=== PATIENT | female | born 1950 | race Caucasian/White ===

== ENCOUNTER 2016-11-08 13:49 | Emergency (ER) | payer OTHER ==
[2016-11-08 14:03] VITALS: TEMP 98.7; BMI 30.5
--- NOTE | 2016-11-08 14:27 | PDOC ---
History of Present Illness - General Chief Complaint: Chest Pain Stated Complaint: LEFT ARM AND CHEST PAIN Time Seen by Provider: 11/08/16 14:24 History Source: Patient Exam Limitations: No Limitations - History of Present Illness Initial Comments: 11/08/16 14:26 CHIEF COMPLAINT: Chest pain HISTORY OF PRESENT ILLNESS: This is a 66 year old male with a history of atrial fibrillation on Coumadin and HTN who presents ambulatory to the ED complaining of chest pain and left arm pain. The pain began while walking two days ago and was initially intermittent, but now is constant and present at rest. She denies any associated shortness of breath, nausea, dizziness, or any other symptoms. Vital signs on arrival are unremarkable. REVIEW OF SYSTEMS: GENERAL/CONSTITUTIONAL: No fever or chills. No weakness. No weight change. HEAD, EYES, EARS, NOSE AND THROAT: No change in vision. No ear pain or discharge. No sore throat. CARDIOVASCULAR: See HPI. RESPIRATORY: No cough, wheezing, or shortness of breath. GASTROINTESTINAL: No nausea, vomiting, diarrhea or constipation. GENITOURINARY: No dysuria, frequency, or change in urination. MUSCULOSKELETAL: No joint or muscle swelling or pain. No neck or back pain. SKIN: No rash or easy bruising. NEUROLOGIC: No headache, vertigo, loss of consciousness, or loss of sensation. PSYCHIATRIC: No depression or anxiety. ENDOCRINE: No increased thirst. No abnormal weight change. HEMATOLOGIC/LYMPHATIC: No anemia, easy bleeding, or history of blood clots. ALLERGIC/IMMUNOLOGIC: No hives or skin allergy. No latex allergy. PHYSICAL EXAM: GENERAL: The patient is awake, alert, and fully oriented, in no acute distress. ENT: Pupils equal, round and reactive to light, extraocular movements intact, sclera anicteric, conjunctiva clear. Neck supple. LUNGS: Clear to auscultation bilaterally. Normal excursion. No respiratory distress or use of accessory muscles. CV: RRR, S1/S2, no MRG. Cap refill < 2 sec. ABDOMEN: Soft, non-distended, non-tender. EXTREMITIES: Normal range of motion, no edema. NEUROLOGICAL: Normal speech, normal gait. CN II-XII grossly intact. PSYCH: Normal mood, normal affect. SKIN: Warm, dry, normal turgor, no rashes or lesions noted. Past History - Past Medical History Allergies/Adverse Reactions: Allergies Allergy/AdvReac Type Severity Reaction Status Date / Time No Known Allergies Allergy Verified 11/08/16 14:03 Home Medications: Ambulatory Orders Lisinopril [Prinivil] 10 mg PO DAILY 11/08/16 Warfarin Na [Coumadin] 16 mg PO DAILY 11/08/16 Cardiac Disorders: Yes (AFIB) HTN: Yes - Psycho/Social/Smoking Cessation Hx Suicidal Ideation: No Smoking History: Never smoked Information on smoking cessation initiated: No Hx Alcohol Use: No Drug/Substance Use Hx: No Substance Use Type: None *Physical Exam - Vital Signs Last Vital Signs Temp Pulse Resp BP Pulse Ox 98.7 F 88 18 141/82 97 11/08/16 14:01 11/08/16 14:01 11/08/16 14:01 11/08/16 14:01 11/08/16 14:01 ED Treatment Course - LABORATORY CBC & Chemistry Diagram: 11/08/16 14:34 11/08/16 14:34 - RADIOLOGY Radiology Studies Ordered: Category Date Time Status CHEST X-RAY PORTABLE* [RAD] Stat Radiology 11/08/16 14:26 Ordered Medical Decision Making - Medical Decision Making 11/08/16 15:28 A/P: 66 year old female with chest pain/left arm pain at rest. 1. EKG 2. CXR 3. Cardiac labs 4. ASA 162mg 5. SL ntg 0.4mg 6. Re-assess 11/08/16 16:06 INR sub-therapeutic at 1.5. 11/08/16 16:07 CXR: Cardiomegaly; no acute process. 11/08/16 16:50 First troponin <0.02. Explained to patient and son at bedside that serial troponins are necessary to rule out IN and recommended observation. They decline. offered ED stay for second troponin and they decline this also. Explained risk of adverse outcomes including and they agree. *DC/Admit/Observation/Transfer Diagnosis at time of Disposition: Subtherapeutic anticoagulation Chest pain Qualifiers: Chest pain type: other chest pain Qualified Code(s): R07.89 - Other chest pain - Discharge Dispostion Disposition: AGAINST MEDICAL ADVICE Condition at time of disposition: Guarded - Referrals Referrals: Bhavya Rowley MD [Primary Care Provider] - - Patient Instructions Printed Discharge Instructions: DI for Chest Pain Additional Instructions: -You are being discharged AGAINST MEDICAL ADVICE -Please follow up with Dr. Rowley as soon as possible for further evaluation and testing -Return here if you wish to complete your evaluation, or for any new or concerning symptoms
[2016-11-08] MEDS ORDERED: NITROGLYCERIN SUBLINGUAL 1/150 0.4 MG TAB SL ONE (14:46)
[2016-11-08] MEDS ORDERED: ASPIRIN 81 MG CHEWABLE TABLETS PO ONE (14:46)
[2016-11-08 15:19] LABS: BASOPHIL 0.5 % (0-2.0); EOSINOPHIL 1.6 % (0-4.5); MCH 27.9 pg (25.7-33.7); MCHC 32.4 g/dl (32.0-36.0); MEAN CELL VOLUME 86.3 fl (80-96); MEAN PLT VOLUME 9.3 fl (7.5-11.1); NEUTROPHILS 66.4 % (42.8-82.8); PLATELET COUNT 132 K/MM3 (134-434); RDW 13.8 % (11.6-15.6); WHITE BLOOD COUNT 6.7 K/mm3 (4.0-10.0)
[2016-11-08] MEDS ORDERED: ASPIRIN 81 MG CHEWABLE TABLETS ONE (15:19)
[2016-11-08 15:59] LABS: ALBUMIN 3.6 g/dl (3.4-5.0); ANION GAP 6 (8-16); BILIRUBIN,TOTAL 0.5 mg/dL (0.2-1.0); CALCIUM 8.7 mg/dL (8.5-10.1); CO2 27 mmol/L (21-32); CREATININE 0.4 mg/dL (0.55-1.02); GLUCOSE,RANDOM 100 mg/dL (74-106); SGPT/ALT 24 U/L (12-78); TOT PROT 7.7 g/dl (6.4-8.2)
[2016-11-08 16:01] LABS: INR 1.5 (0.82-1.09); PROTHROMBIN TIME (PATIENT) 16.6 SEC (9.98-11.88)
[2016-11-08 16:02] LABS: ALK PHOS 43 U/L (45-117); TROPONIN I < 0.02 ng/ml (0.00-0.05)
[2016-11-08] MEDS ORDERED: ENOXAPARIN NA (PORCINE) 80 MG/0.8 ML DISP.SYRIN SQ SCH ×2 (16:15→16:31)
[2016-11-08 16:22] LABS: URINE APPEARANCE CLEAR; URINE BILIRUBIN NEGATIVE (NEGATIVE); URINE BLOOD NEGATIVE (NEGATIVE); URINE COLOR LTYELLOW; URINE GLUCOSE (UA) NEGATIVE (NEGATIVE); URINE KETONE NEGATIVE (NEGATIVE); URINE LEUK ESTERASE NEGATIVE (NEGATIVE); URINE NITRITE NEGATIVE (NEGATIVE); URINE PROTEIN NEGATIVE (NEGATIVE); URINE UROBILINOGEN NEGATIVE mg/dL (0.2-1.0)
[2016-11-08] MEDS ORDERED: ENOXAPARIN NA (PORCINE) 80 MG/0.8 ML DISP.SYRIN SQ ONE (16:32)
[2016-11-08 16:37] LABS: CPK 107 IU/L (26-192); SGOT/AST 29 U/L (15-37)
[2016-11-08 16:59] VITALS: BP 130/70; PULSE 80
--- NOTE | 2016-11-09 10:27 | EKG ---
Test Reason : Blood Pressure : / mmHG Vent. Rate : 087 BPM Atrial Rate : 083 BPM P-R Int : 000 ms QRS Dur : 090 ms QT Int : 372 ms P-R-T Axes : 000 -13 -06 degrees QTc Int : 447 ms ATRIAL FIBRILLATION POSSIBLE ANTERIOR INFARCT (CITED ON OR BEFORE 11-APR-2010) CANNOT RULE OUT INFERIOR INFARCT , AGE UNDETERMINED ABNORMAL ECG Confirmed by ALEX BILLINGSLEY MD ([id number]) on 11/09/2016 10:27:41 AM Referred By: Confirmed By:ALEX BILLINGSLEY MD
== END 2016-11-08 17:12 | disposition left against medical advice (07) ==
LOC: JER 13:49
PROC: 3E013GC Introduction of Other Therapeutic Substance into Subcutaneous Tissue, Percutaneous Approach (ICD-10-PCS; principal; 2016-11-08)
DX: R07.89 Other chest pain (principal); R79.1 Abnormal coagulation profile; I48.91 Unspecified atrial fibrillation; I10 Essential (primary) hypertension; Z79.01 Long term (current) use of anticoagulants
CPT/HCPCS: 36415; 71010-TC; 80053; 81003; 84484; 85025; 85610; 93005; 93010; 99285-25

== ENCOUNTER 2016-11-11 23:01 | Emergency (ER) | payer OTHER ==
--- NOTE | 2016-11-11 23:09 | PDOC ---
Attending Attestation - Resident Resident Name: Jose Antonio Weaver - ED Attending Attestation I have performed the following: I have examined & evaluated the patient, The case was reviewed & discussed with the resident, I agree w/resident's findings & plan, Exceptions are as noted - HPI HPI: 11/12/16 01:14 66 yo female on coumadin has c/o slow bleeding from her rt lower molar for 3 days - Physicial Exam PE: 11/12/16 01:15 bleeding from embrasure space on mesial surface of her rt mandibular molar, the tooth has no opposing tooth above it and is extruding from the socket site. The tooth is slightly mobile -there is no evidence of any dental trauma - Medical Decision Making 11/12/16 01:18 the oral bleeding stopped and pt discharge to see her dentist Procedure Note Procedure: there was an area of bleeding on the mesial surface of tooth number 31. Surigiell(ETHICON) was placed in the embrsure space and the bleeding stopped
--- NOTE | 2016-11-11 23:21 | PDOC ---
History of Present Illness - History of Present Illness Initial Comments: 11/11/16 23:08 Ms. Barrera is a 66 year old female with a significant past medical history of HTN and afib who presents to the emergency department with a 2 day history of bleeding from her mouth she thinks is coming from her back right tooth. She had previously been seen on for arm pain and had been given a "shot in the stomach" when her INR was found to be too low. The patient denies chest pain, shortness of breath, headache and dizziness. Denies fever, chills, nausea, vomit, diarrhea and constipation. Denies dysuria, frequency, urgency and hematuria. Allergies: NKDA Past surgical history: Denies Social history: None PMD - Bhavya Din <Jose Antonio Weaver - Last Filed: 11/12/16 00:01> <Isela Chavez - Last Filed: 11/12/16 01:22> - General Stated Complaint: BLEEDING FROM MOUTH Time Seen by Provider: 11/11/16 23:06 Past History - Past Medical History Cardiac Disorders: Yes (AFIB) HTN: Yes - Psycho/Social/Smoking Cessation Hx Suicidal Ideation: No Smoking History: Never smoked Hx Alcohol Use: No Drug/Substance Use Hx: No Substance Use Type: None <Jose Antonio Weaver - Last Filed: 11/12/16 00:01> <Isela Chavez - Last Filed: 11/12/16 01:22> - Past Medical History Allergies/Adverse Reactions: Allergies Allergy/AdvReac Type Severity Reaction Status Date / Time No Known Allergies Allergy Verified 11/08/16 14:03 Home Medications: Ambulatory Orders Lisinopril [Prinivil] 10 mg PO DAILY 11/08/16 Warfarin Na [Coumadin] 16 mg PO DAILY 11/08/16 Review of Systems - Review of Systems Comments:: 11/11/16 23:08 GENERAL/CONSTITUTIONAL: No fever or chills. No weakness. HEAD, EYES, EARS, NOSE AND THROAT: +2 day history of bleeding from the mouth. No change in vision. No ear pain or discharge. No sore throat. CARDIOVASCULAR: No chest pain or shortness of breath RESPIRATORY: No cough, wheezing, or hemoptysis. GASTROINTESTINAL: No nausea, vomiting, diarrhea or constipation. GENITOURINARY: No dysuria, frequency, or change in urination. MUSCULOSKELETAL: No joint or muscle swelling or pain. No neck or back pain. SKIN: No rash NEUROLOGIC: No headache, vertigo, loss of consciousness, or change in strength/ sensation. ENDOCRINE: No increased thirst. No abnormal weight change HEMATOLOGIC/LYMPHATIC: No anemia or history of blood clots. ALLERGIC/IMMUNOLOGIC: No hives or skin allergy. <Jose Antonio Weaver - Last Filed: 11/12/16 00:01> *Physical Exam - Physical Exam Comments: 11/11/16 23:08 GENERAL: Awake, alert, and fully oriented, in no acute distress HEAD: No signs of trauma, normocephalic, atraumatic EYES: PERRLA, EOMI, sclera anicteric, conjunctiva clear ENT: +Patient bleeding from back R lower molar. Tooth is raised and loose but non-tender. NECK: Normal ROM, supple, no lymphadenopathy, JVD, or masses LUNGS: No distress, speaks full sentences, clear to auscultation bilaterally HEART: Regular rate and rhythm, normal S1 and S2, no murmurs, rubs or gallops, peripheral pulses normal and equal bilaterally. ABDOMEN: Soft, nontender, normoactive bowel sounds. No guarding, no rebound. No masses EXTREMITIES: Normal inspection, Normal range of motion, no edema. No clubbing or cyanosis. NEUROLOGICAL: Cranial nerves II through XII grossly intact. Normal speech, normal gait, no focal sensorimotor deficits SKIN: Warm, Dry, normal turgor, no rashes or lesions noted. 11/11/16 23:37 <Jose Antonio Weaver - Last Filed: 11/12/16 00:01> - Vital Signs Last Vital Signs Temp Pulse Resp BP Pulse Ox 99.0 F 75 16 152/88 99 11/11/16 23:15 11/11/16 23:15 11/11/16 23:15 11/11/16 23:15 11/12/16 00:04 <Isela Chavez - Last Filed: 11/12/16 01:22> ED Treatment Course - LABORATORY CBC & Chemistry Diagram: 11/11/16 23:40 11/11/16 23:40 - ADDITIONAL ORDERS Additional order review: Laboratory Results 11/11/16 11/11/16 23:40 23:40 INR 1.42 H PTT (Actin FS) 33.6 Sodium 140 Potassium 4.1 Chloride 103 Carbon Dioxide 28 Anion Gap 9 BUN 22 H D Creatinine 0.5 L D Creat Clearance w eGFR > 60 Random Glucose 110 H Calcium 8.9 Total Bilirubin 0.3 D AST 14 L D ALT 21 Alkaline Phosphatase 46 Total Protein 7.5 Albumin 3.8 11/11/16 23:40 RBC 4.04 MCV 85.8 MCHC 32.9 RDW 13.4 MPV 8.5 Neutrophils % 56.0 Lymphocytes % 31.0 D Monocytes % 9.4 Eosinophils % 2.7 Basophils % 0.9 - Medications Given in the ED: ED Medications Discontinued Medications Generic Name Dose Route Start Last Admin Trade Name Freq PRN Reason Stop Dose Admin Amlodipine Besylate 5 mg 11/11/16 23:32 11/11/16 23:38 Norvasc - PO 11/11/16 23:33 5 mg ONCE ONE Administration <Isela Chavez - Last Filed: 11/12/16 01:22> Medical Decision Making - Medical Decision Making 11/11/16 23:45 Ms. Barrera presents with 2 days of bleeding from her R lower molar. Concern that INR not sufficiently corrected at last visit (). PT/INR drawn to evaluate. BP elevated to 152/88. Norvasc given for BP control. 11/12/16 00:00 Patient signed out to Dr. Chavez for continued care. <Jose Antonio Weaver - Last Filed: 11/12/16 00:01> *DC/Admit/Observation/Transfer <Jose Antonio Weaver - Last Filed: 11/12/16 00:01> <Isela Chavez - Last Filed: 11/12/16 01:22> Diagnosis at time of Disposition: Oral bleeding - Discharge Dispostion Disposition: HOME Condition at time of disposition: Stable - Patient Instructions Printed Discharge Instructions: DI for Dental Pain Additional Instructions: please follow up with your dentist
[2016-11-11] MEDS ORDERED: amLODIPine BESYLATE 5 MG TABLET (FP) PO ONE (23:32)
[2016-11-11] MEDS ORDERED: amLODIPine BESYLATE 5 MG TABLET (FP) ONE (23:41)
[2016-11-11 23:47] LABS: BASOPHIL 0.9 % (0-2.0); EOSINOPHIL 2.7 % (0-4.5); MCH 28.3 pg (25.7-33.7); MCHC 32.9 g/dl (32.0-36.0); MEAN CELL VOLUME 85.8 fl (80-96); MEAN PLT VOLUME 8.5 fl (7.5-11.1); PLATELET COUNT 139 K/MM3 (134-434); RDW 13.4 % (11.6-15.6)
[2016-11-12 00:01] LABS: INR 1.42 (0.82-1.09); PROTHROMBIN TIME (PATIENT) 15.7 SEC (9.98-11.88)
[2016-11-12 00:04] LABS: ACTIVATED PTT 33.6 SECONDS (26.9-34.4)
[2016-11-12 00:10] LABS: ALBUMIN 3.8 g/dl (3.4-5.0); ALK PHOS 46 U/L (45-117); ANION GAP 9 (8-16); BILIRUBIN,TOTAL 0.3 mg/dL (0.2-1.0); CALCIUM 8.9 mg/dL (8.5-10.1); CO2 28 mmol/L (21-32); CREATININE 0.5 mg/dL (0.55-1.02); GLUCOSE,RANDOM 110 mg/dL (74-106); SGOT/AST 14 U/L (15-37); SGPT/ALT 21 U/L (12-78); TOT PROT 7.5 g/dl (6.4-8.2)
[2016-11-12 00:12] VITALS: PULSE 75; TEMP 99; BMI 28.6
[2016-11-12] MEDS ORDERED: LISINOPRIL 10 MG TABLET (FP) PO ONE (01:29)
[2016-11-12] MEDS ORDERED: LISINOPRIL 5 MG TABLET (FP) ONE (01:32)
[2016-11-12 01:35] VITALS: BP 176/81
== END 2016-11-12 01:41 | disposition home or self-care (01) ==
LOC: JER 23:01
DX: K08.89 Other specified disorders of teeth and supporting structures (principal); I48.91 Unspecified atrial fibrillation; Z79.01 Long term (current) use of anticoagulants; I10 Essential (primary) hypertension
CPT/HCPCS: 36415; 80053; 85025; 85610; 85730; 99283-25

== ENCOUNTER → 2018-03-17 | Day surgery (SDC) | payer OTHER ==
--- NOTE | 2018-03-25 17:48 | PATH ---
Surgical Pathology Report Patient Name: CARLOS MCCLURE [facility]. Rec. #: [id number] /Age/Gender: 1950 (Age: 68) / F Account: [id number] Location: RADIOLOGY RUST Taken: 03/17/2018 Received: 03/17/2018 Reported: 03/25/2018 Physicians: Otto Wilkes M.D. Specimen(s) Received LEFT BREAST 11:00 1.68CM Clinical History 1.7 cm left infraclavicular palpable mass (chest wall) Final Diagnosis CHEST/BREAST, LEFT, 11:00, ULTRASOUND GUIDED CORE BIOPSY: SCANT LYMPHOID TISSUE CONSISTENT WITH FOLLICULAR LYMPHOMA SEE COMMENT. Comment: Histologic sections show small fragments of skin, skeletal muscle, adipose tissue, and scant lymphoid tissue. The lymphoid tissue has a vaguely nodular architecture and is comprised predominantly of small lymphocytes. Occasional larger lymphoid cells are present. Immunohistochemical stains are reviewed. Stains for CD20 and CD3 show a mixed population with rare CD20+ nodules. The nodules are additionally positive for CD10, BCL-6, and BCL-2. Stains for CD21 and CD23 highlight follicular dendritic meshworks within the nodules. A stain for Ki-67 is variable, however, the nodules are too scant too provide a definitive percentage. The amount of lymphoid tissue is very scant and is too limited for grading. If clinically indicated, rebiopsy with fresh tissue submitted for flow cytometry may be helpful. This case was sent to Dr. Sandro Muller from [facility], [place], [place] ([id number]) the diagnosis above reflects his opinion. Dr. Feliz Mesa has seen this case in consultation and concurs with the diagnosis. See [facility] report ([id number]) for additional details. Electronically Signed Jonelle Brewer M.D. Gross Description Received in formalin labeled "left chest/breast 11:00," are 4 mantilla-yellow, cylindrical portions of fibroadipose tissue ranging from 0.3-1.1 cm in length and averaging 0.1 cm in diameter. The specimens are submitted in toto in one cassette. Time to formalin fixation: Less than one minute Total formalin fixation time: Approximately 6 hours. 03/17/201803/17/2018
== END | disposition home or self-care (01) ==
LOC: JRADUS-SUR 11:27
PROVIDERS: ATTEND Family Medicine
PROC: 0JB60ZX Excision of Chest Subcutaneous Tissue and Fascia, Open Approach, Diagnostic (ICD-10-PCS; principal; 2018-03-17)
DX: C82.82 Other types of follicular lymphoma, intrathoracic lymph nodes (principal)
CPT/HCPCS: 19083; 87899; 88305-TC; 88341-TC; 88342-TC

== ENCOUNTER 2018-10-21 06:23 | Day surgery (SDC) | payer OTHER ==
[2018-10-20 14:23] VITALS: BMI 29.5
[2018-10-21 17:00] VITALS: BP 143/66; PULSE 77; TEMP 98.6
--- NOTE | 2018-10-27 18:10 | PATH ---
Surgical Pathology Report Patient Name: CARLOS MCCLURE [facility]. Rec. #: [id number] /Age/Gender: 1950 (Age: 68) / F Account: [id number] Location: RADIOLOGY INTER Taken: 10/21/2018 Received: 10/21/2018 Reported: 10/27/2018 Physicians: Cassandra Gillespie M.D. Specimen(s) Received PARAAORTIC LYMPH NODE BIOPSY Clinical History Follicular lymphoma Final Diagnosis LYMPH NODE, PARAAORTIC, LEFT, CORE BIOPSY: FOLLICULAR LYMPHOMA, GRADE 1-2. SEE COMMENT. Comment: H&E stained core biopsy section shows a nodular lymphoid infiltrate. Majority of cells are small with irregular nuclear contours; <5 centroblasts are noted. Immunoperoxidase studies show CD20(+), PAX5(+) B-cell follicles in association with CD21(+), CD23(+) follicular dendritic meshworks. The B-cell follicles are CD10(+), BCL2(+), BCL6(+). Ki-67 immunostain shows a proliferation index of <5%. T-cells are morphologically unremarkable. Plasma cells are polytypic. CD30 immunostain highlights scattered activated lymphoid cells. Flow cytometry shows a monoclonal kappa, CD10 positive B-cell population ([id number]). Correlation with relevant clinical and laboratory findings is recommended. This case was sent to Dr. Briana Root from [facility], [place], [place] ([id number]) the diagnosis above reflects her opinion. See [facility] reports for additional details. Electronically Signed Jonelle Brewer M.D. Gross Description Received in formalin labeled "paraaortic biopsy," but indicated on the requisition to be a para-aortic lymph node, are 5 mantilla, cylindrical portions of soft tissue ranging from 1.1-1.8 cm in length and averaging 0.1 cm in diameter. The specimens are submitted in toto in one cassette. There is additional tissue received in RPMI solution which is sent for flow cytometry. /10/21/2018 saudi10/21/2018
== END 2018-10-21 16:30 | disposition home or self-care (01) ==
LOC: JRADIR 06:23
PROVIDERS: ATTEND Internal Medicine Hematology & Oncology
PROC: 07BD3ZX Excision of Aortic Lymphatic, Percutaneous Approach, Diagnostic (ICD-10-PCS; principal; 2018-10-21)
DX: C82.16 Follicular lymphoma grade II, intrapelvic lymph nodes (principal)
CPT/HCPCS: 49180; 76380-TC; 88307-TC

== ENCOUNTER 2021-01-18 04:52 | Day surgery (SDC) | payer MEDICARE, OTHER ==
[2021-01-17 17:24] VITALS: BMI 32.9
[2021-01-18] MEDS ORDERED: ACETAMINOPHEN 1000 MG/100 ML VIAL IVPB ONE (14:55)
[2021-01-18] MEDS ORDERED: ACETAMINOPHEN INJECTION 100 ML IVPB ONE (14:55)
[2021-01-18 16:51] VITALS: TEMP 97.7
[2021-01-18] MEDS ORDERED: LISINOPRIL 20 MG TABLET PO ONE ×2 (17:21→17:30)
[2021-01-18 18:08] VITALS: BP 156/69; PULSE 76
== END 2021-01-18 18:10 | disposition home or self-care (01) ==
LOC: JRADIR 04:52
PROVIDERS: ATTEND Internal Medicine Hematology & Oncology
PROC: 0BBL3ZX Excision of Left Lung, Percutaneous Approach, Diagnostic (ICD-10-PCS; principal; 2021-01-18)
DX: D14.32 Benign neoplasm of left bronchus and lung (principal); Z85.72 Personal history of non-Hodgkin lymphomas
CPT/HCPCS: 32408; 71046-TC-FY; 88305-TC; 88341-TC; 88342-TC; J0131

== ENCOUNTER → 2021-02-13 | Day surgery (SDC) | payer OTHER | END | disposition home or self-care (01) | LOC: JRADIR 09:45 | PROVIDERS: ATTEND Internal Medicine Hematology & Oncology | PROC: 0G9K3ZX Drainage of Thyroid Gland, Percutaneous Approach, Diagnostic (ICD-10-PCS; principal; 2021-02-13) | DX: E04.1 Nontoxic single thyroid nodule (principal) | CPT/HCPCS: 10005; 76942 ==

== ENCOUNTER → 2021-02-15 | Day surgery (SDC) | payer OTHER ==
[2021-02-15 11:05] LABS: BASO % 0.8 % (0-2.0); EOS % 2.2 % (0-4.5); HEMOGLOBIN 12.3 GM/dL (10.7-15.3); LYMPH % 26.4 % (8-40); MCH 28.6 pg (25.7-33.7); MCHC 33.3 g/dl (32.0-36.0); MEAN CELL VOLUME 85.7 fl (80-96); MEAN PLT VOLUME 7.6 fl (7.5-11.1); MONO % 9.2 % (3.8-10.2); NEUT % 61.4 % (42.8-82.8); PLATELET COUNT 133 10^3/uL (134-434); RBC 4.32 M/mm3 (3.60-5.2); RDW 14.3 % (11.6-15.6); WHITE BLOOD COUNT 4.6 K/mm3 (4.0-10.0)
[2021-02-15 11:12] LABS: INR 1.09 (0.83-1.09); PROTHROMBIN TIME (PATIENT) 12.2 SEC (9.7-13.0)
== END | disposition home or self-care (01) ==
LOC: JRADIR 10:16
PROVIDERS: ATTEND Internal Medicine Hematology & Oncology
PROC: 0W963ZX Drainage of Neck, Percutaneous Approach, Diagnostic (ICD-10-PCS; principal; 2021-02-15)
DX: R22.1 Localized swelling, mass and lump, neck (principal); Z85.72 Personal history of non-Hodgkin lymphomas
CPT/HCPCS: 10005; 36415; 76942-TC; 85025; 85610; 87899; 88173; 88305-TC

== ENCOUNTER → 2021-02-16 | Day surgery (SDC) | payer OTHER ==
[2021-02-16 10:34] LABS: INR 1.11 (0.83-1.09); PROTHROMBIN TIME (PATIENT) 12.4 SEC (9.7-13.0)
[2021-02-16 10:42] LABS: ALBUMIN 3.6 g/dl (3.4-5.0); BLOOD UREA NITROGEN 13.2 mg/dL (7-18); CALCIUM 8.9 mg/dL (8.5-10.1)
[2021-02-16 10:43] LABS: BASO % 2.2 % (0-2.0); EOS % 2.9 % (0-4.5); HEMATOCRIT 34.8 % (32.4-45.2); HEMOGLOBIN 11.7 GM/dL (10.7-15.3); LYMPH % 22.1 % (8-40); MCH 28.5 pg (25.7-33.7); MCHC 33.5 g/dl (32.0-36.0); MEAN CELL VOLUME 84.9 fl (80-96); MEAN PLT VOLUME 8.1 fl (7.5-11.1); MONO % 9.3 % (3.8-10.2); NEUT % 63.5 % (42.8-82.8); PLATELET COUNT 126 10^3/uL (134-434); WHITE BLOOD COUNT 3.8 K/mm3 (4.0-10.0)
[2021-02-16 10:44] LABS: URIC ACID 2.9 mg/dL (2.6-7.2)
[2021-02-16 10:46] LABS: CREATININE 0.5 mg/dL (0.55-1.3)
[2021-02-16 10:47] LABS: BILIRUBIN,TOTAL 0.4 mg/dL (0.2-1); TOT PROT 7.4 g/dl (6.4-8.2)
== END | disposition home or self-care (01) ==
LOC: JONCCHEMO 07:30
PROVIDERS: ATTEND Internal Medicine Hematology & Oncology
DX: Z53.8 Procedure and treatment not carried out for other reasons (principal)
CPT/HCPCS: 36415; 80053; 83615; 84550; 85025; 85610; 85730

== ENCOUNTER 2021-03-22 05:21 | Day surgery (SDC) | payer OTHER ==
[2021-03-20 16:15] VITALS: BMI 30.9
[2021-03-22 10:36] LABS: INR 1.22 (0.83-1.09); PROTHROMBIN TIME (PATIENT) 13.7 SEC (9.7-13.0)
[2021-03-22] MEDS ORDERED: ACETAMINOPHEN 325 MG TABLET (FP) ONE (14:02)
[2021-03-22] MEDS ORDERED: ACETAMINOPHEN 325 MG TABLET (FP) PO ONE (14:06)
[2021-03-22 14:22] VITALS: BP 177/90; PULSE 79; TEMP 97.6
== END 2021-03-22 14:51 | disposition home or self-care (01) ==
LOC: JRADIR 05:21
PROVIDERS: ATTEND Internal Medicine Hematology & Oncology
PROC: 0JH63WZ Insertion of Totally Implantable Vascular Access Device into Chest Subcutaneous Tissue and Fascia, Percutaneous Approach (ICD-10-PCS; principal; 2021-03-22)
DX: C85.90 Non-Hodgkin lymphoma, unspecified, unspecified site (principal)
CPT/HCPCS: 36561; C1788; 36415; 85610

== ENCOUNTER → 2021-03-23 | Day surgery (SDC) | payer OTHER ==
[~2021-03-23] MED LIST: ACETAMINOPHEN 325 MG TABLET (FP) PO ONE; CYCLOPHOSPHAMIDE IVPB ONE; DEXAMETHASONE SODIUM PHOSPHATE 20 MG in SODIUM CHLORIDE 50 ML IVPB ONE; PALONOSETRON HCL 0.25 MG/5 ML VIAL IVPUSH ONE; RITUXIMAB ABBS IVPB ONE; SODIUM CHLORIDE 1,000 ML IV ONE; SODIUM CHLORIDE IVPB ONE; vinCRIStine SULFATE 2 MG in SODIUM CHLORIDE 25 ML IVPB ONE
[2021-03-23 09:04] LABS: BASO % 0.8 % (0-2.0); EOS % 2.2 % (0-4.5); HEMATOCRIT 35.7 % (32.4-45.2); HEMOGLOBIN 11.8 GM/dL (10.7-15.3); LYMPH % 22.9 % (8-40); MCH 28.9 pg (25.7-33.7); MCHC 32.9 g/dl (32.0-36.0); MEAN CELL VOLUME 87.6 fl (80-96); MEAN PLT VOLUME 8.3 fl (7.5-11.1); MONO % 9.8 % (3.8-10.2); NEUT % 64.3 % (42.8-82.8); PLATELET COUNT 137 10^3/uL (134-434); RBC 4.08 M/mm3 (3.60-5.2); RDW 14.3 % (11.6-15.6); WHITE BLOOD COUNT 4.7 K/mm3 (4.0-10.0)
[2021-03-23 09:29] LABS: CALCIUM 9.4 mg/dL (8.5-10.1)
[2021-03-23 09:30] LABS: ALBUMIN 3.6 g/dl (3.4-5.0); BLOOD UREA NITROGEN 15.2 mg/dL (7-18); MAGNESIUM 2.3 mg/dL (1.8-2.4)
[2021-03-23 09:33] LABS: CREATININE 0.6 mg/dL (0.55-1.3)
[2021-03-23 09:34] LABS: BILIRUBIN,TOTAL 0.6 mg/dL (0.2-1)
[2021-03-23 09:35] LABS: TOT PROT 7.5 g/dl (6.4-8.2)
== END | disposition home or self-care (01) ==
LOC: JONCCHEMO 07:25
PROVIDERS: ATTEND Internal Medicine Hematology & Oncology
DX: Z53.8 Procedure and treatment not carried out for other reasons (principal)
CPT/HCPCS: 36415; 80053; 83735; 85025

== ENCOUNTER 2021-03-29 07:04 | Day surgery (SDC) | payer OTHER ==
[2021-03-29] MEDS ORDERED: SODIUM CHLORIDE 1,000 ML IV ONE (09:00)
[2021-03-29] MEDS ORDERED: ACETAMINOPHEN 325 MG TABLET (FP) PO ONE (10:00)
[2021-03-29] MEDS ORDERED: DEXAMETHASONE SODIUM PHOSPHATE 20 MG in SODIUM CHLORIDE 50 ML IVPB ONE (10:00)
[2021-03-29] MEDS ORDERED: diphenhydrAMINE HCL 25 MG CAPSULE (FP) PO PRN (10:00)
[2021-03-29 10:09] LABS: CALCIUM 8.7 mg/dL (8.5-10.1)
[2021-03-29 10:10] LABS: ALBUMIN 3.5 g/dl (3.4-5.0); BLOOD UREA NITROGEN 21.6 mg/dL (7-18)
[2021-03-29 10:13] LABS: CREATININE 0.6 mg/dL (0.55-1.3)
[2021-03-29 10:14] LABS: BILIRUBIN,TOTAL 0.4 mg/dL (0.2-1); TOT PROT 7.3 g/dl (6.4-8.2)
[2021-03-29 10:29] LABS: BASO % 0.6 % (0-2.0); EOS % 2.4 % (0-4.5); HEMATOCRIT 33.3 % (32.4-45.2); HEMOGLOBIN 11.1 GM/dL (10.7-15.3); MCH 28.8 pg (25.7-33.7); MCHC 33.3 g/dl (32.0-36.0); MEAN CELL VOLUME 86.6 fl (80-96); MEAN PLT VOLUME 8.3 fl (7.5-11.1); MONO % 8.8 % (3.8-10.2); NEUT % 69.2 % (42.8-82.8); PLATELET COUNT 116 10^3/uL (134-434); RBC 3.85 M/mm3 (3.60-5.2); RDW 14.6 % (11.6-15.6); WHITE BLOOD COUNT 4.1 K/mm3 (4.0-10.0)
[2021-03-29] MEDS ORDERED: RITUXIMAB ABBS IVPB ONE (10:30)
[2021-03-29] MEDS ORDERED: SODIUM CHLORIDE IVPB ONE (10:30)
[2021-03-29] MEDS ORDERED: diphenhydrAMINE HCL 25 MG CAPSULE (FP) PO ONE (11:25)
[2021-03-29] MEDS ORDERED: amLODIPine BESYLATE 10 MG TABLET (FP) PO ONE (11:35)
[2021-03-29 11:48] LABS: URIC ACID 2.8 mg/dL (2.6-7.2)
[2021-03-29 16:00] VITALS: TEMP 98.4
[2021-03-29 17:29] VITALS: BP 192/84; PULSE 80
== END 2021-03-29 17:00 | disposition home or self-care (01) ==
LOC: JONCCHEMO 07:04
PROVIDERS: ATTEND Internal Medicine Hematology & Oncology
PROC: 3E04305 Introduction of Other Antineoplastic into Central Vein, Percutaneous Approach (ICD-10-PCS; principal; 2021-03-29)
PROC: 3E043GC Introduction of Other Therapeutic Substance into Central Vein, Percutaneous Approach (ICD-10-PCS; 2021-03-29)
PROC: 3E0437Z Introduction of Electrolytic and Water Balance Substance into Central Vein, Percutaneous Approach (ICD-10-PCS; 2021-03-29)
DX: Z51.11 Encounter for antineoplastic chemotherapy (principal); C82.91 Follicular lymphoma, unspecified, lymph nodes of head, face, and neck; I48.91 Unspecified atrial fibrillation; I10 Essential (primary) hypertension; E78.5 Hyperlipidemia, unspecified
CPT/HCPCS: 36415; 80053; 83615; 84550; 85025; 96361; 96367; 96375; 96413; 96415; Q5115

== ENCOUNTER 2021-03-30 08:42 | Day surgery (SDC) | payer OTHER ==
[2021-03-30 09:36] LABS: HEMATOCRIT 32.8 % (32.4-45.2); HEMOGLOBIN 10.9 GM/dL (10.7-15.3); MCH 28.8 pg (25.7-33.7); MCHC 33.4 g/dl (32.0-36.0); MEAN CELL VOLUME 86.4 fl (80-96); MEAN PLT VOLUME 7.9 fl (7.5-11.1); PLATELET COUNT 122 10^3/uL (134-434); RBC 3.79 M/mm3 (3.60-5.2); RDW 14.5 % (11.6-15.6); WHITE BLOOD COUNT 8.4 K/mm3 (4.0-10.0)
[2021-03-30] MEDS ORDERED: DEXAMETHASONE SODIUM PHOSPHATE 20 MG in SODIUM CHLORIDE 50 ML IVPB ONE (10:00)
[2021-03-30] MEDS ORDERED: PALONOSETRON HCL 0.25 MG/5 ML VIAL IVPUSH ONE (10:00)
[2021-03-30 10:06] LABS: BLOOD UREA NITROGEN 20.1 mg/dL (7-18); CALCIUM 8.6 mg/dL (8.5-10.1)
[2021-03-30 10:07] LABS: ALBUMIN 3.6 g/dl (3.4-5.0)
[2021-03-30 10:09] LABS: URIC ACID 2.8 mg/dL (2.6-7.2)
[2021-03-30 10:10] LABS: CREATININE 0.6 mg/dL (0.55-1.3)
[2021-03-30 10:11] LABS: BILIRUBIN,TOTAL 0.3 mg/dL (0.2-1); TOT PROT 7.5 g/dl (6.4-8.2)
[2021-03-30] MEDS ORDERED: SODIUM CHLORIDE IVPB ONE (10:30)
[2021-03-30] MEDS ORDERED: CYCLOPHOSPHAMIDE IVPB ONE (10:30)
[2021-03-30] MEDS ORDERED: vinCRIStine SULFATE 2 MG in SODIUM CHLORIDE 25 ML IVPB ONE (11:00)
[2021-03-30] MEDS ORDERED: SODIUM CHLORIDE 1,000 ML IV STA (11:49)
[2021-03-30 12:01] LABS: ANISOCYTOSIS 2+; MACROCYTOSIS 2+; OVALOCYTE 1+; PLATELET ESTIMATE DECREASED
[2021-03-30] MEDS ORDERED: SODIUM CHLORIDE 250 ML IV ONE (15:00)
[2021-03-30] MEDS ORDERED: PEGFILGRASTIM (NEULASTA ONPRO) 6 MG/0.6 ML KIT SQ ONE (15:00)
[2021-03-30 15:31] VITALS: TEMP 98.6
[2021-03-30 15:55] VITALS: BP 153/84; PULSE 68
[2021-03-30] MEDS ORDERED: PORTA CATH FLUSH 10 ML IVPUSH ONE (15:55)
== END 2021-03-30 16:00 | disposition home or self-care (01) ==
LOC: JONCCHEMO 08:42
PROVIDERS: ATTEND Internal Medicine Hematology & Oncology
PROC: 3E04305 Introduction of Other Antineoplastic into Central Vein, Percutaneous Approach (ICD-10-PCS; principal; 2021-03-30)
PROC: 3E043GC Introduction of Other Therapeutic Substance into Central Vein, Percutaneous Approach (ICD-10-PCS; 2021-03-30)
PROC: 3E0437Z Introduction of Electrolytic and Water Balance Substance into Central Vein, Percutaneous Approach (ICD-10-PCS; 2021-03-30)
PROC: 3E01305 Introduction of Other Antineoplastic into Subcutaneous Tissue, Percutaneous Approach (ICD-10-PCS; 2021-03-30)
DX: Z51.11 Encounter for antineoplastic chemotherapy (principal); C82.91 Follicular lymphoma, unspecified, lymph nodes of head, face, and neck; I48.91 Unspecified atrial fibrillation; I10 Essential (primary) hypertension; E78.5 Hyperlipidemia, unspecified
CPT/HCPCS: 36415; 80053; 83615; 84550; 85025; 96361; 96375; 96402; 96413; J2469; J2505; J9070; J9370

== ENCOUNTER 2021-04-16 13:18 | Emergency (ER) | payer OTHER ==
[2021-04-16 14:03] VITALS: BMI 36.3
[2021-04-16] MEDS ORDERED: SOTROVIMAB 500 MG in SODIUM CHLORIDE 100 ML IVPB ONE (15:08)
[2021-04-16 16:32] VITALS: BP 180/87; PULSE 71; TEMP 98.7
== END 2021-04-16 18:00 | disposition home or self-care (01) ==
LOC: JER 13:18 → JCOVINFU 13:18
PROC: 3E033GC Introduction of Other Therapeutic Substance into Peripheral Vein, Percutaneous Approach (ICD-10-PCS; principal; 2021-04-16)
DX: U07.1 COVID-19 (principal)
CPT/HCPCS: 96365; 99284-25; M0247; Q0247

== ENCOUNTER 2021-05-24 08:56 | Day surgery (SDC) | payer OTHER ==
[2021-05-24 09:59] LABS: BASO % 0.9 % (0-2.0); EOS % 2.2 % (0-4.5); HEMOGLOBIN 11.5 GM/dL (10.7-15.3); LYMPH % 16.8 % (8-40); MCHC 32.8 g/dl (32.0-36.0); MEAN CELL VOLUME 88.3 fl (80-96); MEAN PLT VOLUME 8.8 fl (7.5-11.1); MONO % 12.2 % (3.8-10.2); NEUT % 67.9 % (42.8-82.8); PLATELET COUNT 143 10^3/uL (134-434); RBC 3.96 M/mm3 (3.60-5.2); RDW 15.7 % (11.6-15.6); WHITE BLOOD COUNT 3.6 K/mm3 (4.0-10.0)
[2021-05-24] MEDS ORDERED: ACETAMINOPHEN 325 MG TABLET (FP) PO ONE (10:00)
[2021-05-24] MEDS ORDERED: diphenhydrAMINE HCL 25 MG CAPSULE (FP) PO ONE (10:00)
[2021-05-24] MEDS ORDERED: SODIUM CHLORIDE 0.9% 500 ML IV ONE (10:00)
[2021-05-24] MEDS ORDERED: DEXAMETHASONE SODIUM PHOSPHATE 20 MG in SODIUM CHLORIDE 50 ML IVPB ONE (10:00)
[2021-05-24 10:16] LABS: CALCIUM 9.2 mg/dL (8.5-10.1)
[2021-05-24 10:17] LABS: ALBUMIN 3.7 g/dl (3.4-5.0); BLOOD UREA NITROGEN 18.7 mg/dL (7-18)
[2021-05-24] MEDS ORDERED: RITUXIMAB-ABBS 500 MG, RITUXIMAB-ABBS 190 MG in SODIUM CHLORIDE 621 ML IVPB ONE (10:30)
[2021-05-24 13:43] LABS: BILIRUBIN,TOTAL 0.3 mg/dL (0.2-1); CREATININE 0.2 mg/dL (0.55-1.3); TOT PROT 7.4 g/dl (6.4-8.2); URIC ACID 2.7 mg/dL (2.6-7.2)
[2021-05-24 16:53] VITALS: TEMP 97.9
[2021-05-24 16:59] VITALS: BP 140/79; PULSE 76
[2021-05-24] MEDS ORDERED: PORTA CATH FLUSH 10 ML IVPUSH ONE (16:59)
== END 2021-05-24 16:25 | disposition home or self-care (01) ==
LOC: JONCCHEMO 08:56
PROVIDERS: ATTEND Internal Medicine Hematology & Oncology
DX: Z51.11 Encounter for antineoplastic chemotherapy (principal); C85.80 Other specified types of non-Hodgkin lymphoma, unspecified site
CPT/HCPCS: 36415; 80053; 83615; 84550; 85025; 87517; 96361; 96375; 96413; 96415; Q5115

== ENCOUNTER 2021-05-25 08:47 | Day surgery (SDC) | payer OTHER ==
[2021-05-25] MEDS ORDERED: DEXAMETHASONE SODIUM PHOSPHATE 20 MG in SODIUM CHLORIDE 50 ML IVPB ONE (10:00)
[2021-05-25] MEDS ORDERED: PALONOSETRON HCL 0.25 MG/5 ML VIAL IVPUSH ONE (10:00)
[2021-05-25] MEDS ORDERED: SODIUM CHLORIDE IVPB ONE (10:30)
[2021-05-25] MEDS ORDERED: CYCLOPHOSPHAMIDE IVPB ONE (10:30)
[2021-05-25 10:34] LABS: BASO % 0.2 % (0-2.0); HEMATOCRIT 34.2 % (32.4-45.2); HEMOGLOBIN 11.3 GM/dL (10.7-15.3); LYMPH % 5.1 % (8-40); MCH 28.9 pg (25.7-33.7); MCHC 32.9 g/dl (32.0-36.0); MEAN CELL VOLUME 87.8 fl (80-96); MEAN PLT VOLUME 8.7 fl (7.5-11.1); MONO % 3.5 % (3.8-10.2); NEUT % 91.2 % (42.8-82.8); PLATELET COUNT 135 10^3/uL (134-434); RBC 3.89 M/mm3 (3.60-5.2); RDW 15.9 % (11.6-15.6); WHITE BLOOD COUNT 9.7 K/mm3 (4.0-10.0)
[2021-05-25] MEDS ORDERED: SODIUM CHLORIDE 500 ML IV STA (10:46)
[2021-05-25 10:52] LABS: CALCIUM 9.4 mg/dL (8.5-10.1)
[2021-05-25 10:53] LABS: ALBUMIN 3.8 g/dl (3.4-5.0); BLOOD UREA NITROGEN 20.8 mg/dL (7-18)
[2021-05-25 10:56] LABS: CREATININE 0.6 mg/dL (0.55-1.3)
[2021-05-25 10:57] LABS: TOT PROT 7.3 g/dl (6.4-8.2)
[2021-05-25 10:58] LABS: BILIRUBIN,TOTAL 0.3 mg/dL (0.2-1)
[2021-05-25] MEDS ORDERED: vinCRIStine SULFATE 1 MG in SODIUM CHLORIDE 25 ML IVPB ONE (11:30)
[2021-05-25 11:36] LABS: ANISOCYTOSIS 0; MACROCYTOSIS 0; PLATELET ESTIMATE SLT DECREASE
[2021-05-25 14:46] VITALS: TEMP 98.3
[2021-05-25 15:02] VITALS: BP 122/98; PULSE 63
== END 2021-05-25 14:45 | disposition home or self-care (01) ==
LOC: JONCCHEMO 08:47
PROVIDERS: ATTEND Internal Medicine Hematology & Oncology
DX: Z51.11 Encounter for antineoplastic chemotherapy (principal); C82.11 Follicular lymphoma grade II, lymph nodes of head, face, and neck
CPT/HCPCS: 36415; 80053; 83615; 85025; 96375; 96411; 96413; J2469; J9070; J9370

== ENCOUNTER 2021-05-26 06:38 | Day surgery (SDC) | payer OTHER ==
[2021-05-26] MEDS ORDERED: PEGFILGRASTIM-CBQV (UDENYCA) 6 MG/0.6 ML SYRINGE SQ ONE (09:00)
[2021-05-26 15:26] VITALS: TEMP 98.3
[2021-05-26] MEDS ORDERED: SODIUM CHLORIDE 500 ML IV STA (15:30)
[2021-05-26 15:32] VITALS: BP 155/82; PULSE 66
== END 2021-05-26 15:25 | disposition home or self-care (01) ==
LOC: JONCCHEMO 06:38
PROVIDERS: ATTEND Internal Medicine Hematology & Oncology
PROC: 3E013GC Introduction of Other Therapeutic Substance into Subcutaneous Tissue, Percutaneous Approach (ICD-10-PCS; principal; 2021-05-26)
DX: C82.11 Follicular lymphoma grade II, lymph nodes of head, face, and neck (principal); Z76.89 Persons encountering health services in other specified circumstances
CPT/HCPCS: 96372; Q5111

== ENCOUNTER → 2021-06-14 | Day surgery (SDC) | payer OTHER ==
[~2021-06-14] MED LIST changes: -CYCLOPHOSPHAMIDE IVPB ONE; -PALONOSETRON HCL 0.25 MG/5 ML VIAL IVPUSH ONE; -RITUXIMAB ABBS IVPB ONE; +RITUXIMAB-ABBS 500 MG, RITUXIMAB-ABBS 190 MG in SODIUM CHLORIDE 621 ML IVPB ONE; -SODIUM CHLORIDE 1,000 ML IV ONE; +SODIUM CHLORIDE 500 ML IV ONE; -SODIUM CHLORIDE IVPB ONE; +diphenhydrAMINE HCL 25 MG CAPSULE (FP) PO ONE; -vinCRIStine SULFATE 2 MG in SODIUM CHLORIDE 25 ML IVPB ONE
[2021-06-14 10:36] LABS: BASO % 0.8 % (0-2.0); EOS % 1.8 % (0-4.5); HEMATOCRIT 32.1 % (32.4-45.2); HEMOGLOBIN 10.9 GM/dL (10.7-15.3); LYMPH % 13.6 % (8-40); MCH 29.8 pg (25.7-33.7); MEAN CELL VOLUME 87.8 fl (80-96); MEAN PLT VOLUME 8.1 fl (7.5-11.1); NEUT % 73.8 % (42.8-82.8); PLATELET COUNT 156 10^3/uL (134-434); RBC 3.65 M/mm3 (3.60-5.2); RDW 15.4 % (11.6-15.6)
[2021-06-14 11:04] LABS: ALBUMIN 3.6 g/dl (3.4-5.0)
[2021-06-14 11:05] LABS: BLOOD UREA NITROGEN 16.2 mg/dL (7-18)
[2021-06-14 11:08] LABS: CREATININE 0.5 mg/dL (0.55-1.3)
[2021-06-14 11:09] LABS: BILIRUBIN,TOTAL 0.4 mg/dL (0.2-1)
== END | disposition home or self-care (01) ==
LOC: JONCCHEMO 07:20
PROVIDERS: ATTEND Internal Medicine Hematology & Oncology
DX: Z53.8 Procedure and treatment not carried out for other reasons (principal)
CPT/HCPCS: 36415; 80053; 85025

== ENCOUNTER 2021-06-15 09:42 | Day surgery (SDC) | payer OTHER ==
[~2021-06-15 09:42] MED LIST changes: -ACETAMINOPHEN 325 MG TABLET (FP) PO ONE; -DEXAMETHASONE SODIUM PHOSPHATE 20 MG in SODIUM CHLORIDE 50 ML IVPB ONE; -RITUXIMAB-ABBS 500 MG, RITUXIMAB-ABBS 190 MG in SODIUM CHLORIDE 621 ML IVPB ONE; -diphenhydrAMINE HCL 25 MG CAPSULE (FP) PO ONE
[2021-06-15] MEDS ORDERED: diphenhydrAMINE HCL 25 MG CAPSULE (FP) PO ONE (10:00)
[2021-06-15] MEDS ORDERED: PALONOSETRON HCL 0.25 MG/5 ML VIAL IVPUSH ONE (10:00)
[2021-06-15] MEDS ORDERED: ACETAMINOPHEN 325 MG TABLET (FP) PO ONE (10:00)
[2021-06-15] MEDS ORDERED: DEXAMETHASONE SODIUM PHOSPHATE 20 MG in SODIUM CHLORIDE 50 ML IVPB ONE (10:00)
[2021-06-15] MEDS ORDERED: RITUXIMAB-ABBS 500 MG, RITUXIMAB-ABBS 190 MG in SODIUM CHLORIDE 621 ML IVPB ONE (10:30)
[2021-06-15 13:00] LABS: URIC ACID 2.9 mg/dL (2.6-7.2)
[2021-06-15] MEDS ORDERED: SODIUM CHLORIDE IVPB ONE (13:00)
[2021-06-15] MEDS ORDERED: CYCLOPHOSPHAMIDE IVPB ONE (13:00)
[2021-06-15] MEDS ORDERED: vinCRIStine SULFATE 1 MG in SODIUM CHLORIDE 25 ML IVPB ONE (13:30)
[2021-06-15 15:22] VITALS: TEMP 98.3
[2021-06-15] MEDS ORDERED: PORTA CATH FLUSH 10 ML IVPUSH ONE (15:26)
[2021-06-15 15:57] VITALS: BP 125/63; PULSE 82
== END 2021-06-15 16:15 | disposition home or self-care (01) ==
LOC: JONCCHEMO 09:42
PROVIDERS: ATTEND Internal Medicine Hematology & Oncology
DX: Z51.11 Encounter for antineoplastic chemotherapy (principal); C82.11 Follicular lymphoma grade II, lymph nodes of head, face, and neck
CPT/HCPCS: 36415; 83615; 84550; 87516; 96375; 96413; 96415; Q5115

== ENCOUNTER 2021-06-16 08:43 | Day surgery (SDC) | payer OTHER ==
[2021-06-16] MEDS ORDERED: DEXAMETHASONE INJECTION 20 MG in SODIUM CHLORIDE 50 ML IVPB ONE (09:30)
[2021-06-16] MEDS ORDERED: SODIUM CHLORIDE 500 ML IV STA (09:40)
[2021-06-16] MEDS ORDERED: PALONOSETRON HCL 0.25 MG/5 ML VIAL IVPUSH ONE (10:00)
[2021-06-16] MEDS ORDERED: SODIUM CHLORIDE IVPB ONE (10:30)
[2021-06-16] MEDS ORDERED: CYCLOPHOSPHAMIDE IVPB ONE (10:30)
[2021-06-16] MEDS ORDERED: vinCRIStine SULFATE 1 MG in SODIUM CHLORIDE 25 ML IVPB ONE (11:00)
[2021-06-16] MEDS ORDERED: PEGFILGRASTIM (NEULASTA ONPRO) 6 MG/0.6 ML KIT SQ ONE (15:30)
[2021-06-16 16:50] VITALS: TEMP 98
[2021-06-16 16:59] VITALS: BP 127/65; PULSE 63
== END 2021-06-16 15:00 | disposition home or self-care (01) ==
LOC: JONCCHEMO 08:43
PROVIDERS: ATTEND Internal Medicine Hematology & Oncology
PROC: 3E04305 Introduction of Other Antineoplastic into Central Vein, Percutaneous Approach (ICD-10-PCS; principal; 2021-06-16)
PROC: 3E013GC Introduction of Other Therapeutic Substance into Subcutaneous Tissue, Percutaneous Approach (ICD-10-PCS; 2021-06-16)
DX: Z51.11 Encounter for antineoplastic chemotherapy (principal); C82.11 Follicular lymphoma grade II, lymph nodes of head, face, and neck
CPT/HCPCS: 96361; 96372; 96375; 96411; 96413; J1100; J2469; J2506; J9070; J9370

== ENCOUNTER 2021-07-05 06:45 | Day surgery (SDC) | payer OTHER ==
[2021-07-05 10:11] LABS: BASO % 0.9 % (0-2.0); EOS % 2.5 % (0-4.5); HEMATOCRIT 31.9 % (32.4-45.2); HEMOGLOBIN 10.6 GM/dL (10.7-15.3); LYMPH % 15.9 % (8-40); MCH 28.9 pg (25.7-33.7); MCHC 33.1 g/dl (32.0-36.0); MEAN CELL VOLUME 87.4 fl (80-96); MEAN PLT VOLUME 7.6 fl (7.5-11.1); MONO % 13.7 % (3.8-10.2); PLATELET COUNT 141 10^3/uL (134-434); RBC 3.65 M/mm3 (3.60-5.2); RDW 15.7 % (11.6-15.6); WHITE BLOOD COUNT 3.2 K/mm3 (4.0-10.0)
[2021-07-05] MEDS ORDERED: diphenhydrAMINE HCL 25 MG CAPSULE (FP) PO ONE (10:30)
[2021-07-05] MEDS ORDERED: ACETAMINOPHEN 325 MG TABLET (FP) PO ONE (10:30)
[2021-07-05] MEDS ORDERED: DEXAMETHASONE SODIUM PHOSPHATE 20 MG in SODIUM CHLORIDE 50 ML IVPB ONE (10:30)
[2021-07-05 10:34] LABS: ALBUMIN 3.7 g/dl (3.4-5.0); BLOOD UREA NITROGEN 16.5 mg/dL (7-18)
[2021-07-05 10:37] LABS: CREATININE 0.5 mg/dL (0.55-1.3)
[2021-07-05 10:38] LABS: TOT PROT 6.8 g/dl (6.4-8.2)
[2021-07-05 10:39] LABS: BILIRUBIN,TOTAL 0.4 mg/dL (0.2-1)
[2021-07-05] MEDS ORDERED: RITUXIMAB-ABBS 500 MG, RITUXIMAB-ABBS 190 MG in SODIUM CHLORIDE 621 ML IVPB ONE (11:00)
[2021-07-05 17:23] VITALS: BP 152/74; PULSE 78; TEMP 98.4
[2021-07-05] MEDS ORDERED: PORTA CATH FLUSH 10 ML IVPUSH ONE (17:24)
== END 2021-07-05 16:35 | disposition home or self-care (01) ==
LOC: JONCCHEMO 06:45
PROVIDERS: ATTEND Internal Medicine Hematology & Oncology
PROC: 3E04305 Introduction of Other Antineoplastic into Central Vein, Percutaneous Approach (ICD-10-PCS; principal; 2021-07-05)
PROC: 3E043GC Introduction of Other Therapeutic Substance into Central Vein, Percutaneous Approach (ICD-10-PCS; 2021-07-05)
DX: Z51.11 Encounter for antineoplastic chemotherapy (principal); C82.11 Follicular lymphoma grade II, lymph nodes of head, face, and neck
CPT/HCPCS: 36415; 80053; 85025; 96367; 96413; 96415; Q5115

== ENCOUNTER 2021-07-06 07:42 | Day surgery (SDC) | payer OTHER ==
[2021-07-06] MEDS ORDERED: DEXAMETHASONE INJECTION 20 MG in SODIUM CHLORIDE 50 ML IVPB ONE (09:30)
[2021-07-06] MEDS ORDERED: PALONOSETRON HCL 0.25 MG/5 ML VIAL IVPUSH ONE (09:30)
[2021-07-06] MEDS ORDERED: PEGFILGRASTIM-CBQV (UDENYCA) 6 MG/0.6 ML SYRINGE SQ ONE (10:00)
[2021-07-06] MEDS ORDERED: CYCLOPHOSPHAMIDE IVPB ONE (10:00)
[2021-07-06] MEDS ORDERED: SODIUM CHLORIDE IVPB ONE (10:00)
[2021-07-06] MEDS ORDERED: vinCRIStine SULFATE 1 MG in SODIUM CHLORIDE 25 ML IVPB ONE (10:30)
[2021-07-06] MEDS ORDERED: PEGFILGRASTIM (NEULASTA ONPRO) 6 MG/0.6 ML KIT SQ ONE (11:00)
[2021-07-06 16:43] VITALS: BP 142/66; PULSE 75; TEMP 98.7
[2021-07-06] MEDS ORDERED: PORTA CATH FLUSH 10 ML IVPUSH ONE (16:52)
== END 2021-07-06 11:35 | disposition home or self-care (01) ==
LOC: JONCCHEMO 07:42
PROVIDERS: ATTEND Internal Medicine Hematology & Oncology
PROC: 3E04305 Introduction of Other Antineoplastic into Central Vein, Percutaneous Approach (ICD-10-PCS; principal; 2021-07-06)
PROC: 3E043GC Introduction of Other Therapeutic Substance into Central Vein, Percutaneous Approach (ICD-10-PCS; 2021-07-06)
PROC: 3E013GC Introduction of Other Therapeutic Substance into Subcutaneous Tissue, Percutaneous Approach (ICD-10-PCS; 2021-07-06)
DX: Z51.11 Encounter for antineoplastic chemotherapy (principal); C82.11 Follicular lymphoma grade II, lymph nodes of head, face, and neck
CPT/HCPCS: 96367; 96372; 96411; 96413; J1100; J2469; J2506; J9070; J9370

== ENCOUNTER 2021-07-26 07:05 | Day surgery (SDC) | payer OTHER ==
[2021-07-26] MEDS ORDERED: diphenhydrAMINE HCL 25 MG CAPSULE (FP) PO ONE (09:30)
[2021-07-26] MEDS ORDERED: ACETAMINOPHEN 325 MG TABLET (FP) PO ONE (09:30)
[2021-07-26] MEDS ORDERED: DEXAMETHASONE SODIUM PHOSPHATE 20 MG in SODIUM CHLORIDE 50 ML IVPB ONE (09:30)
[2021-07-26] MEDS ORDERED: RITUXIMAB-ABBS 500 MG, RITUXIMAB-ABBS 190 MG in SODIUM CHLORIDE 621 ML IVPB ONE (10:00)
[2021-07-26 10:17] LABS: BASO % 1.2 % (0-2.0); EOS % 4.9 % (0-4.5); HEMATOCRIT 32.2 % (32.4-45.2); HEMOGLOBIN 10.9 GM/dL (10.7-15.3); LYMPH % 12.8 % (8-40); MCH 29.2 pg (25.7-33.7); MCHC 33.9 g/dl (32.0-36.0); MEAN PLT VOLUME 7.5 fl (7.5-11.1); MONO % 11.6 % (3.8-10.2); NEUT % 69.5 % (42.8-82.8); PLATELET COUNT 163 10^3/uL (134-434); RBC 3.74 M/mm3 (3.60-5.2); RDW 16.2 % (11.6-15.6); WHITE BLOOD COUNT 4.6 K/mm3 (4.0-10.0)
[2021-07-26 10:40] LABS: ALBUMIN 3.4 g/dl (3.4-5.0); BLOOD UREA NITROGEN 16.3 mg/dL (7-18); CALCIUM 8.9 mg/dL (8.5-10.1)
[2021-07-26 10:45] LABS: CREATININE 0.7 mg/dL (0.55-1.3)
[2021-07-26 10:47] LABS: BILIRUBIN,TOTAL 0.3 mg/dL (0.2-1); TOT PROT 6.8 g/dl (6.4-8.2)
[2021-07-26] MEDS ORDERED: SODIUM CHLORIDE 500 ML IV STA (15:09)
[2021-07-26 17:08] VITALS: BP 130/70; PULSE 87; TEMP 98.5
[2021-07-26] MEDS ORDERED: PORTA CATH FLUSH 10 ML IVPUSH PRN (17:08)
== END 2021-07-26 16:00 | disposition home or self-care (01) ==
LOC: JONCCHEMO 07:05
PROVIDERS: ATTEND Internal Medicine Hematology & Oncology
DX: Z51.11 Encounter for antineoplastic chemotherapy (principal); C82.11 Follicular lymphoma grade II, lymph nodes of head, face, and neck
CPT/HCPCS: 36415; 80053; 85025; 96360; 96361; 96375; 96413; Q5115

== ENCOUNTER 2021-07-27 07:10 | Day surgery (SDC) | payer OTHER ==
[2021-07-27] MEDS ORDERED: DEXAMETHASONE INJECTION 20 MG in SODIUM CHLORIDE 50 ML IVPB ONE (09:30)
[2021-07-27] MEDS ORDERED: PALONOSETRON HCL 0.25 MG/5 ML VIAL IVPUSH ONE (09:30)
[2021-07-27] MEDS ORDERED: SODIUM CHLORIDE IVPB ONE (10:00)
[2021-07-27] MEDS ORDERED: CYCLOPHOSPHAMIDE IVPB ONE (10:00)
[2021-07-27] MEDS ORDERED: vinCRIStine SULFATE 1 MG in SODIUM CHLORIDE 25 ML IVPB ONE (10:30)
[2021-07-27 10:44] LABS: BASO % 0.1 % (0-2.0); EOS % 0.1 % (0-4.5); HEMATOCRIT 32.6 % (32.4-45.2); HEMOGLOBIN 10.8 GM/dL (10.7-15.3); LYMPH % 8.4 % (8-40); MCH 28.7 pg (25.7-33.7); MCHC 33.1 g/dl (32.0-36.0); MEAN CELL VOLUME 86.7 fl (80-96); MEAN PLT VOLUME 7.9 fl (7.5-11.1); MONO % 3.6 % (3.8-10.2); NEUT % 87.8 % (42.8-82.8); PLATELET COUNT 189 10^3/uL (134-434); RBC 3.76 M/mm3 (3.60-5.2); RDW 16.1 % (11.6-15.6); WHITE BLOOD COUNT 7.4 K/mm3 (4.0-10.0)
[2021-07-27] MEDS ORDERED: PEGFILGRASTIM (NEULASTA ONPRO) 6 MG/0.6 ML KIT SQ ONE (11:00)
[2021-07-27 11:03] LABS: ALBUMIN 3.6 g/dl (3.4-5.0); BLOOD UREA NITROGEN 18.7 mg/dL (7-18); CALCIUM 9.6 mg/dL (8.5-10.1)
[2021-07-27 11:06] LABS: CREATININE 0.6 mg/dL (0.55-1.3)
[2021-07-27 11:08] LABS: BILIRUBIN,TOTAL 0.3 mg/dL (0.2-1); TOT PROT 7.3 g/dl (6.4-8.2)
[2021-07-27] MEDS ORDERED: SODIUM CHLORIDE 500 ML IV STA (11:18)
[2021-07-27 16:53] VITALS: TEMP 98.4
[2021-07-27] MEDS ORDERED: PORTA CATH FLUSH 10 ML IVPUSH PRN (16:54)
[2021-07-27 16:55] VITALS: BP 123/61; PULSE 75
== END 2021-07-27 14:30 | disposition home or self-care (01) ==
LOC: JONCCHEMO 07:10
PROVIDERS: ATTEND Internal Medicine Hematology & Oncology
DX: Z51.11 Encounter for antineoplastic chemotherapy (principal); C82.11 Follicular lymphoma grade II, lymph nodes of head, face, and neck
CPT/HCPCS: 36415; 80053; 85025; 87517; 96361; 96375; 96411; 96413; J1100; J2469; J9070; J9370

== ENCOUNTER 2021-07-28 08:13 | Day surgery (SDC) | payer OTHER ==
[2021-07-28] MEDS ORDERED: PEGFILGRASTIM (NEULASTA ONPRO) 6 MG/0.6 ML KIT SQ ONE (10:00)
[2021-07-28] MEDS ORDERED: PEGFILGRASTIM-CBQV (UDENYCA) 6 MG/0.6 ML SYRINGE SQ ONE (10:15)
[2021-07-28 16:06] VITALS: BP 124/64; PULSE 74; TEMP 98.2
== END 2021-07-28 15:10 | disposition home or self-care (01) ==
LOC: JONCCHEMO 08:13
PROVIDERS: ATTEND Internal Medicine Hematology & Oncology
PROC: 3E013GC Introduction of Other Therapeutic Substance into Subcutaneous Tissue, Percutaneous Approach (ICD-10-PCS; principal; 2021-07-28)
DX: C82.11 Follicular lymphoma grade II, lymph nodes of head, face, and neck (principal); Z76.89 Persons encountering health services in other specified circumstances
CPT/HCPCS: 96372; Q5111

== ENCOUNTER 2021-08-16 06:40 | Day surgery (SDC) | payer OTHER ==
[~2021-08-16 06:40] MED LIST changes: +DEXAMETHASONE SODIUM PHOSPHATE 20 MG in SODIUM CHLORIDE 50 ML IVPB ONE; -SODIUM CHLORIDE 500 ML IV ONE
[2021-08-16] MEDS ORDERED: ACETAMINOPHEN 325 MG TABLET (FP) PO ONE (09:30)
[2021-08-16] MEDS ORDERED: DEXAMETHASONE SODIUM PHOSPHATE 20 MG in SODIUM CHLORIDE 50 ML IVPB ONE (09:30)
[2021-08-16] MEDS ORDERED: diphenhydrAMINE HCL 25 MG CAPSULE (FP) PO ONE (09:30)
[2021-08-16] MEDS ORDERED: RITUXIMAB-ABBS 500 MG, RITUXIMAB-ABBS 190 MG in SODIUM CHLORIDE 621 ML IVPB ONE (10:00)
[2021-08-16 10:26] LABS: BASO % 0.9 % (0-2.0); EOS % 4.2 % (0-4.5); HEMATOCRIT 34.7 % (32.4-45.2); HEMOGLOBIN 11.8 GM/dL (10.7-15.3); MCH 29.1 pg (25.7-33.7); MCHC 33.9 g/dl (32.0-36.0); MEAN CELL VOLUME 85.9 fl (80-96); MEAN PLT VOLUME 7.5 fl (7.5-11.1); MONO % 12.7 % (3.8-10.2); NEUT % 63.2 % (42.8-82.8); PLATELET COUNT 156 10^3/uL (134-434); RBC 4.04 M/mm3 (3.60-5.2); RDW 16.9 % (11.6-15.6); WHITE BLOOD COUNT 4.2 K/mm3 (4.0-10.0)
[2021-08-16 10:56] LABS: CALCIUM 9.1 mg/dL (8.5-10.1)
[2021-08-16 10:57] LABS: ALBUMIN 3.4 g/dl (3.4-5.0); BLOOD UREA NITROGEN 17.6 mg/dL (7-18)
[2021-08-16 11:00] LABS: CREATININE 0.4 mg/dL (0.55-1.3)
[2021-08-16 11:01] LABS: BILIRUBIN,TOTAL 0.6 mg/dL (0.2-1)
[2021-08-16 11:02] LABS: TOT PROT 6.8 g/dl (6.4-8.2)
[2021-08-16 15:00] VITALS: PULSE 82; TEMP 97.8
[2021-08-16 15:27] VITALS: BP 123/73
[2021-08-16] MEDS ORDERED: PORTA CATH FLUSH 10 ML IVPUSH PRN (15:27)
== END 2021-08-16 16:10 | disposition home or self-care (01) ==
LOC: JONCCHEMO 06:40
PROVIDERS: ATTEND Internal Medicine Hematology & Oncology
DX: Z51.11 Encounter for antineoplastic chemotherapy (principal); C82.11 Follicular lymphoma grade II, lymph nodes of head, face, and neck
CPT/HCPCS: 36415; 80053; 85025; 87517; 96367; 96413; 96415; Q5115

== ENCOUNTER 2021-08-17 07:35 | Day surgery (SDC) | payer OTHER ==
[2021-08-17] MEDS ORDERED: PALONOSETRON HCL 0.25 MG/5 ML VIAL IVPUSH ONE (09:30)
[2021-08-17] MEDS ORDERED: DEXAMETHASONE INJECTION 20 MG in SODIUM CHLORIDE 50 ML IVPB ONE (09:30)
[2021-08-17] MEDS ORDERED: CYCLOPHOSPHAMIDE IVPB ONE (10:00)
[2021-08-17] MEDS ORDERED: SODIUM CHLORIDE IVPB ONE (10:00)
[2021-08-17 10:03] VITALS: TEMP 97.8
[2021-08-17] MEDS ORDERED: vinCRIStine SULFATE 1 MG in SODIUM CHLORIDE 25 ML IVPB ONE (10:30)
[2021-08-17 11:23] VITALS: BP 117/65; PULSE 71
== END 2021-08-17 11:30 | disposition home or self-care (01) ==
LOC: JONCNONCHE 07:35
PROVIDERS: ATTEND Internal Medicine Hematology & Oncology
DX: Z51.11 Encounter for antineoplastic chemotherapy (principal); C82.11 Follicular lymphoma grade II, lymph nodes of head, face, and neck
CPT/HCPCS: 96375; 96411; 96413; J1100; J2469; J9070; J9370

== ENCOUNTER 2021-08-18 07:37 | Day surgery (SDC) | payer OTHER ==
[2021-08-18] MEDS ORDERED: PEGFILGRASTIM-CBQV (UDENYCA) 6 MG/0.6 ML SYRINGE SQ ONE (10:00)
[2021-08-18 16:13] VITALS: BP 135/69; PULSE 84; TEMP 98.4
[2021-09-20 17:01] LABS: BASO % 1.3 % (0-2.0); EOS % 3.8 % (0-4.5); HEMATOCRIT 35.4 % (32.4-45.2); HEMOGLOBIN 11.5 GM/dL (10.7-15.3); LYMPH % 29.2 % (8-40); MCH 27.6 pg (25.7-33.7); MCHC 32.4 g/dl (32.0-36.0); MEAN CELL VOLUME 85.2 fl (80-96); MEAN PLT VOLUME 7.3 fl (7.5-11.1); NEUT % 44.7 % (42.8-82.8); PLATELET COUNT 151 10^3/uL (134-434); RBC 4.16 M/mm3 (3.60-5.2); RDW 16.5 % (11.6-15.6); WHITE BLOOD COUNT 3.3 K/mm3 (4.0-10.0)
[2021-09-20 17:23] LABS: ANISOCYTOSIS 1+; MACROCYTOSIS 0; OVALOCYTE 1+
[2021-09-20 17:47] LABS: CALCIUM 9.1 mg/dL (8.5-10.1)
[2021-09-20 17:48] LABS: ALBUMIN 3.9 g/dl (3.4-5.0); BLOOD UREA NITROGEN 10.7 mg/dL (7-18)
[2021-09-20 17:51] LABS: CREATININE 0.4 mg/dL (0.55-1.3)
[2021-09-20 17:52] LABS: BILIRUBIN,TOTAL 0.4 mg/dL (0.2-1)
[2021-09-20 17:53] LABS: TOT PROT 7.1 g/dl (6.4-8.2)
== END 2021-08-18 13:00 | disposition home or self-care (01) ==
LOC: JONCNONCHE 07:37
PROVIDERS: ATTEND Internal Medicine Hematology & Oncology
PROC: 3E013GC Introduction of Other Therapeutic Substance into Subcutaneous Tissue, Percutaneous Approach (ICD-10-PCS; principal; 2021-08-18)
DX: C82.11 Follicular lymphoma grade II, lymph nodes of head, face, and neck (principal); Z76.89 Persons encountering health services in other specified circumstances
CPT/HCPCS: 36415; 80053; 85025; 87517; 96372; Q5111

== ENCOUNTER 2022-12-13 14:17 | Emergency (ER) | payer OTHER ==
[2022-12-13 14:28] VITALS: BP 106/67; PULSE 86; RESP 16; TEMP 98.2; BMI 30.2
[2022-12-13] MEDS ORDERED: CEPHALEXIN MONOHYDRATE 500 MG CAPSULE (UD) PO ONE (15:21)
[2022-12-13] MEDS ORDERED: CEPHALEXIN MONOHYDRATE 500 MG CAPSULE (UD) ONE (15:37)
[2022-12-13 16:14] LABS: BASO % 0.6 % (0-2.0); EOS % 2.1 % (0-4.5); HEMATOCRIT 34.9 % (32.4-45.2); HEMOGLOBIN 11.5 GM/dL (10.7-15.3); LYMPH % 25.2 % (8-40); MCH 27.8 pg (25.7-33.7); MEAN CELL VOLUME 84.2 fl (80-96); MEAN PLT VOLUME 7.9 fl (7.5-11.1); MONO % 8.9 % (3.8-10.2); NEUT % 63.2 % (42.8-82.8); PLATELET COUNT 143 10^3/uL (134-434); RBC 4.15 M/mm3 (3.60-5.2); RDW 14.6 % (11.6-15.6); WHITE BLOOD COUNT 5.1 K/mm3 (4.0-10.0)
[2022-12-13 16:32] LABS: POTASSIUM 4.3 mmol/L (3.5-5.1)
[2022-12-13 16:34] LABS: ALBUMIN 3.5 g/dl (3.4-5.0); BLOOD UREA NITROGEN 12.8 mg/dL (7-18); CALCIUM 8.8 mg/dL (8.5-10.1)
[2022-12-13 16:37] LABS: CREATININE 0.5 mg/dL (0.55-1.3)
[2022-12-13 16:39] LABS: BILIRUBIN,TOTAL 0.3 mg/dL (0.2-1); TOT PROT 7.5 g/dl (6.4-8.2)
== END 2022-12-13 17:11 | disposition home or self-care (01) ==
LOC: JER 14:17
DX: M79.652 Pain in left thigh (principal); L53.9 Erythematous condition, unspecified; L03.116 Cellulitis of left lower limb
CPT/HCPCS: 36415; 80053; 85025; 86618; 99283-25